=== PATIENT | male | born 2000 | race Caucasian/White ===

== ENCOUNTER 2021-09-12 23:56 | Emergency (ER) | payer OTHER ==
[~2021-09-12] VITALS: Ht 172.7 cm; Wt 80.1 kg
[2021-09-13] MEDS ORDERED: NS 1,000 ML IV ONE (00:30)
[2021-09-13 00:46] LABS: BASO # 0.1 10^3/uL (0.0-0.2); BASO % 0.3 % (0.0-1.0); EOS % 0.2 % (0.0-3.0); HEMATOCRIT 44.4 % (42.0-52.0); HEMOGLOBIN 15.8 g/dl (13.5-17.5); LYMPH # 1.1 10^3/uL (1.5-5.0); MEAN CORPUSCULAR HEMOGLOBIN 30.1 pg (27.0-33.0); MEAN CORPUSCULAR HGB CONC 35.6 g/dl (32.0-36.5); MEAN CORPUSCULAR VOLUME 84.6 fl (80.0-96.0); MONO # 1.2 10^3/uL (0.0-0.8); NEUTROPHILS # 16.5 10^3/uL (1.5-8.5); NEUTROPHILS % 86.9 % (36.0-66.0); PLATELET COUNT, AUTOMATED 279 10^3/uL (150-450); RED BLOOD COUNT 5.25 10^6/uL (4.30-6.10)
[2021-09-13 00:58] LABS: VENOUS BASE EXCESS -2.7 (-2.0-2.0); VENOUS HCO3 19.2 MEQ/L (23.0-27.0); VENOUS O2 SATURATION 97.8 % (60.0-80.0); VENOUS PARTIAL PRESSURE CO2 26.8 mmHg (38.0-50.0); VENOUS PARTIAL PRESSURE O2 91.1 mmHg (30.0-50.0); VENOUS PH 7.472 UNITS (7.330-7.430); VENOUS STANDARD HCO3 22.3 MEQ/L
[2021-09-13] MEDS ORDERED: LORazepam 2 MG/ML VIAL IV STA (00:58)
[2021-09-13 01:27] LABS: AMPHETAMINES LEVEL URINE NEGATIVE (NEGATIVE); BARBITURATES URINE NEGATIVE (NEGATIVE); BENZODIAZEPINES URINE NEGATIVE (NEGATIVE); CANNABINOIDS URINE NEGATIVE (NEGATIVE); COCAINE METABOLITE URINE NEGATIVE (NEGATIVE); METHADONE URINE NEGATIVE (NEGATIVE); OPIATES URINE NEGATIVE (NEGATIVE); PHENCYCLIDINE URINE NEGATIVE (NEGATIVE)
[2021-09-13 02:18] LABS: ALBUMIN 3.9 GM/DL (3.2-5.2); ALT/SGPT 23 U/L (12-78); BILIRUBIN,DIRECT 0.2 MG/DL (0.0-0.2); BILIRUBIN,TOTAL 0.7 MG/DL (0.2-1.0); BLOOD UREA NITROGEN 18 MG/DL (7-18); CALCIUM LEVEL 8.9 MG/DL (8.5-10.1); CARBON DIOXIDE LEVEL 23 MEQ/L (21-32); CHLORIDE LEVEL 109 MEQ/L (98-107); CREATININE FOR GFR 1.23 MG/DL (0.70-1.30); ETHYL ALCOHOL (ETHANOL) < 0.003 % (0.000-0.010); GLOMERULAR FILTRATION RATE > 60.0 (>60); GLUCOSE, FASTING 112 MG/DL (70-100); LIPASE 48 U/L (73-393); POTASSIUM SERUM 3.9 MEQ/L (3.5-5.1); SODIUM LEVEL 141 MEQ/L (136-145); TOTAL PROTEIN 7.3 GM/DL (6.4-8.2)
[2021-09-13] MEDS ORDERED: NS 1,400 ML in IV 1 EA IV ONE (02:50)
[2021-09-13 04:13] LABS: BASO # 0.1 10^3/uL (0.0-0.2); BASO % 0.3 % (0.0-1.0); LYMPH # 0.6 10^3/uL (1.5-5.0); MEAN CORPUSCULAR HEMOGLOBIN 30.1 pg (27.0-33.0); MEAN CORPUSCULAR HGB CONC 35.1 g/dl (32.0-36.5); MEAN CORPUSCULAR VOLUME 85.7 fl (80.0-96.0); MONO # 0.7 10^3/uL (0.0-0.8); MONO % 4.9 % (2.0-8.0); NEUTROPHILS # 13.6 10^3/uL (1.5-8.5); NEUTROPHILS % 90.3 % (36.0-66.0); PLATELET COUNT, AUTOMATED 220 10^3/uL (150-450); RED BLOOD COUNT 4.55 10^6/uL (4.30-6.10)
[2021-09-13 04:14] LABS: VENOUS BASE EXCESS -1.7 (-2.0-2.0); VENOUS HCO3 21.6 MEQ/L (23.0-27.0); VENOUS O2 SATURATION 99.3 % (60.0-80.0); VENOUS PARTIAL PRESSURE CO2 32.9 mmHg (38.0-50.0); VENOUS PARTIAL PRESSURE O2 210.9 mmHg (30.0-50.0); VENOUS PH 7.436 UNITS (7.330-7.430); VENOUS STANDARD HCO3 23.1 MEQ/L; VENOUS TOTAL CO2 22.7 MEQ/L (24.0-28.0)
[2021-09-13 04:22] LABS: HEMOGLOBIN 13.7 g/dl (13.5-17.5)
[2021-09-13] MEDS ORDERED: ACETAMINOPHEN TAB 650MG DOSE (2X325MG) PO ONE (06:05)
[2021-09-13] MEDS ORDERED: ISOVUE-370 76% 100ML VIAL As Ordered ONE (06:12)
[2021-09-13 06:31] VITALS: BP 122/67
== END 2021-09-13 07:10 | disposition home or self-care (01) ==
LOC: M ED 23:56 → EDSEX 23:56 → EDBD 23:56 → M ED 09-13 07:10
DX: F41.0 Panic disorder [episodic paroxysmal anxiety] (principal)
CPT/HCPCS: 74177; 80048; 80076; 80307; 82077; 82803; 83605; 83690; 85025; 93041; 99285; J2060; Q9967

== ENCOUNTER 2021-10-08 01:45 | Emergency (ER) | payer OTHER ==
[~2021-10-08] VITALS: Ht 175.3 cm; Wt 79.8 kg
[2021-10-08 01:45] VITALS: BP 142/81
[2021-10-08] MEDS ORDERED: ACETAMINOPHEN 500 MG TAB PO ONE (01:55)
== END 2021-10-08 03:56 | disposition left against medical advice (07) ==
LOC: M ED 01:45
DX: Z53.21 Procedure and treatment not carried out due to patient leaving prior to being seen by health care provider (principal)